=== PATIENT | female | born 1980 ===

== ENCOUNTER 2017-12-18 16:00 | Emergency (ER) | payer OTHER ==
[2017-12-18 16:00] VITALS: BMI 32.8
[2017-12-18 16:12] VITALS: RESP 16; O2SAT 100
--- NOTE | 2017-12-18 16:22 | ED PDOC ---
HPI: General Adult Time Seen by Provider: 12/18/17 16:22 Chief Complaint (Nursing): Chest Pain Chief Complaint (Provider): chest pain, abd pain, back pain History Per: Patient Additional Complaint(s): 37-year-old female with no past medical history presents to emergency department with epigastric pain, chest pain and back pain ongoing for about 3 weeks. Patient states pain starts in her epigastric region and radiates into her chest and her back. She has had nausea with no vomiting. Patient denies fever or chills. She also has had slight cough. No meds taken for pain relief. PMD: Blanca Mora Past Medical History Reviewed: Historical Data, Nursing Documentation, Vital Signs Vital Signs: Last Vital Signs Temp 98.4 F 12/18/17 16:11 Pulse 71 12/18/17 16:11 Resp 16 12/18/17 16:11 BP 145/78 12/18/17 16:11 Pulse Ox 100 12/18/17 18:50 - Medical History PMH: No Chronic Diseases - Surgical History Surgical History: (x 2) - Family History Family History: States: No Known Family Hx - Living Arrangements Living Arrangements: With Family - Social History Current smoker - smoking cessation education provided: No Alcohol: None Drugs: Denies - Home Medications Home Medications: Ambulatory Orders Medication Instructions Recorded oxyCODONE/Acetaminophen [Percocet 1 tab PO Q6H PRN #30 tab 10/19/15 5/325 mg Tab] Ondansetron [Zofran Odt] 4 mg PO ASDIR PRN #10 odt 12/18/17 - Allergies Allergies/Adverse Reactions: Allergies Allergy/AdvReac Type Severity Reaction Status Date / Time No Known Allergies Allergy Verified 10/16/15 06:25 Review of Systems ROS Statement: Except As Marked, All Systems Reviewed And Found Negative Constitutional: Negative for: Fever, Chills Cardiovascular: Positive for: Chest Pain Respiratory: Negative for: Cough Gastrointestinal: Positive for: Nausea, Abdominal Pain. Negative for: Vomiting , Diarrhea Genitourinary Female: Negative for: Dysuria Musculoskeletal: Positive for: Back Pain Physical Exam - Reviewed Nursing Documentation Reviewed: Yes Vital Signs Reviewed: Yes - Physical Exam Appears: Positive for: Well, Non-toxic, No Acute Distress Skin: Negative for: Rash Eye Exam: Positive for: Normal appearance Cardiovascular/Chest: Positive for: Regular Rate, Rhythm Respiratory: Positive for: Normal Breath Sounds Gastrointestinal/Abdominal: Positive for: Soft, Tenderness (epigastric, RUQ) Back: Negative for: L CVA Tenderness, R CVA Tenderness Extremity: Positive for: Normal ROM Neurologic/Psych: Positive for: Alert, Oriented - Laboratory Results Result Diagrams: 12/18/17 17:28 12/18/17 17:28 Urine POC: Negative Urine dip results: Positive for: Leukocyte Esterase (trace), Blood (moderate). Negative for: Nitrate, Ketones, Glucose, Bilirubin, Protein - ECG Interpretation Of ECG: Normal sinus rhythm 71 bpm, no acute finding, reviewed by PA and ED attending O2 Sat by Pulse Oximetry: 100 Pulse Ox Interpretation: Normal - Other Rad CXR X-Ray: Interpreted by Me, Viewed By Me X-Ray Interpretation: no acute finding ABD US X-Ray: Read By Radiologist X-Ray Interpretation: see below Medical Decision Making Medical Decision Makin37 year old with chest, back and abd pain Plan: EKG CXR Abd US US IVF IV pepcid PO maalox IV toradol US: FINDINGS: LIVER: Liver measures approximately 15 cm in CC dimension. Liver demonstrates smooth contour and normal echotexture. No obvious hepatic mass collection or calcification seen on images presented. No gross intrahepatic bile duct dilatation. GALLBLADDER: Multiple intraluminal gallbladder calculi. No sonographic Raygoza sign. COMMON BILE DUCT: Measures 7.0 mm. No stones. No dilatation. PANCREAS: Unremarkable as visualized. No mass. No ductal dilatation. RIGHT KIDNEY: Measures 10.4 x 4.6 x 4.9 cm in length. Normal echogenicity. No calculus, mass, or hydronephrosis. AORTA: No aneurysmal dilatation. IVC: Unremarkable. OTHER FINDINGS: None IMPRESSION: Cholelithiasis. No sonographic Raygoza sign. Patient feels much better after meds were given in ED. She is aware of all diagnostic test results, all questions answered. Patient given prescriptions for Motrin and Zofran. Patient was advised to follow up with clinic. Disposition - Clinical Impression Clinical Impression: Gallstones - Patient ED Disposition Is Patient to be Admitted: No Counseled Patient/Family Regarding: Studies Performed, Diagnosis, Need For Followup, Rx Given - Disposition Referrals: [facility] [Outside] [facility] [place] [Outside] Disposition: Routine/Home Disposition Time: 19:23 Condition: STABLE Additional Instructions: Take prescription meds as directed. Follow dietary instructions. Follow up with clinic in one to 2 days or return any time if acutely worse. Prescriptions: Ondansetron [Zofran Odt] 4 mg PO ASDIR PRN #10 odt PRN Reason: Nausea/Vomiting Instructions: Gallstones, Low Cholesterol, Saturated Fat, and Trans Fat Diet Forms: [employer] (Georgian) Print Language: ANDORRAN Results - Lab Results Lab Results: 12/18/17 12/18/17 12/18/17 18:47 17:28 17:28 WBC 10.8 RBC 4.45 Hgb 12.7 Hct 38.3 MCV 86.0 MCH 28.6 MCHC 33.3 RDW 13.0 Plt Count 207 MPV 8.2 Neut % (Auto) 71.2 Lymph % (Auto) 17.9 L Morrison % (Auto) 8.2 Eos % (Auto) 2.2 Baso % (Auto) 0.5 Neut # (Auto) 7.7 H Lymph # (Auto) 1.9 Morrison # (Auto) 0.9 H Eos # (Auto) 0.2 Baso # (Auto) 0.1 Sodium 143 Potassium 3.8 Chloride 104 Carbon Dioxide 26 Anion Gap 17 BUN 13 Creatinine 0.5 L Est GFR ( Amer) > 60 Est GFR (Non-Af Amer) > 60 Random Glucose 129 H Calcium 9.1 Total Bilirubin 0.5 AST 95 H ALT 67 H Alkaline Phosphatase 75 Troponin I < 0.0120 Total Protein 8.9 H Albumin 4.5 Globulin 4.4 H Albumin/Globulin Ratio 1.0 Urine Color Yellow Urine Clarity Turbid Urine pH 8.0 Ur Specific [place] 1.019 Urine Protein Negative Urine Glucose (UA) Neg Urine Ketones Negative Urine Blood Moderate Urine Nitrate Negative Urine Bilirubin Negative Urine Urobilinogen 0.2-1.0 Ur Leukocyte Esterase Neg Urine RBC (Auto) 87 H Ur Squamous Epith Cells 2 Amorphous Sediment Rare H Urine Bacteria Rare Urine Yeast (Budding) Many H
[2017-12-18] MEDS ORDERED: Alum-Mag Hydrox-Simethicone Susp (30 mL) PO STA (16:43)
[2017-12-18] MEDS ORDERED: Sodium Chloride 0.9% 1,000 ML IV STA (16:43)
[2017-12-18 17:33] LABS: BASO # 0.1 K/uL (0.0-0.2); BASO % 0.5 % (0.0-2.0); EOS # 0.2 K/uL (0.0-0.7); EOS % 2.2 % (0.0-4.0); HEMOGLOBIN 12.7 g/dL (12.0-16.0); LYMPH # 1.9 K/uL (1.0-4.3); LYMPH % 17.9 % (20.0-40.0); MEAN CORPUSCULAR HEMOGLOBIN 28.6 pg (27.0-31.0); MEAN CORPUSCULAR HGB CONC 33.3 g/dL (33.0-37.0); MEAN PLATELET VOLUME 8.2 fl (7.2-11.7); MONO # 0.9 K/uL (0.0-0.8); MONO % 8.2 % (0.0-10.0); NEUT # 7.7 K/uL (1.8-7.0); NEUT % 71.2 % (50.0-75.0); NRBC % 0.2 % (0.0-0.0); RBC 4.45 Mil/uL (3.80-5.20); WHITE BLOOD COUNT 10.8 K/uL (4.8-10.8)
[2017-12-18] MEDS ORDERED: Alum-Mag Hydrox-Simethicone Susp (30 mL) ONE (17:40)
[2017-12-18 17:47] LABS: ALBUMIN 4.5 g/dL (3.5-5.0); ALT/SGPT 67 U/L (9-52); AST/SGOT 95 U/L (14-36); BLOOD UREA NITROGEN 13 mg/dl (7-17); CALCIUM 9.1 mg/dL (8.4-10.2); GFR AFRICAN-AMERICAN > 60; GFR NON-AFRICAN AMERICAN > 60
--- NOTE | 2017-12-18 18:02 | US ---
HISTORY: Epigastric/right upper quadrant pain. COMPARISON: None. TECHNIQUE: Sonographic evaluation of the right upper quadrant of the abdomen. FINDINGS: LIVER: Liver measures approximately 15 cm in CC dimension. Liver demonstrates smooth contour and normal echotexture. No obvious hepatic mass collection or calcification seen on images presented. No gross intrahepatic bile duct dilatation. GALLBLADDER: Multiple intraluminal gallbladder calculi. No sonographic Raygoza sign. COMMON BILE DUCT: Measures 7.0 mm. No stones. No dilatation. PANCREAS: Unremarkable as visualized. No mass. No ductal dilatation. RIGHT KIDNEY: Measures 10.4 x 4.6 x 4.9 cm in length. Normal echogenicity. No calculus, mass, or hydronephrosis. AORTA: No aneurysmal dilatation. IVC: Unremarkable. OTHER FINDINGS: None . IMPRESSION: Cholelithiasis. No sonographic Raygoza sign.
[2017-12-18 19:04] LABS: SQUAMOUS EPITHIAL 2 /hpf (0-5); URINE AMORPHOUS SEDIMENT RARE /ul (<OCC); URINE BACTERIA RARE (<OCC); URINE BILIRUBIN NEGATIVE (NEGATIVE); URINE BLOOD MODERATE (NEGATIVE); URINE CLARITY TURBID (Clear); URINE COLOR YELLOW (YELLOW); URINE GLUCOSE (UA) NEG (Normal); URINE LEUKOCYTE ESTERASE NEG Leu/uL (Negative); URINE PROTEIN NEGATIVE (NEGATIVE); URINE UROBILINOGEN 0.2-1.0 mg/dL (0.2-1.0)
[2017-12-18 19:50] VITALS: BP 135/80; PULSE 73; TEMP 98.2
--- NOTE | 2017-12-19 08:17 | RAD ---
HISTORY: pain COMPARISON: No prior. FINDINGS: LUNGS: There is a vague rounded density left lateral lung base that probably represents nipple shadow artifact PLEURA: No significant pleural effusion identified, no pneumothorax apparent. CARDIOVASCULAR: Normal. OSSEOUS STRUCTURES: No significant abnormalities. VISUALIZED UPPER ABDOMEN: Normal. OTHER FINDINGS: None. IMPRESSION: Vague rounded density left lateral lung base probably represents nipple shadow artifact. Repeat PA and lateral views of the chest with nipple markers in place could be performed to confirm. Note that this report was placed in PA review folder for followup
== END 2017-12-18 19:30 | disposition home or self-care (01) ==
LOC: H.ER 16:00
DX: K80.20 Calculus of gallbladder without cholecystitis without obstruction (principal)
CPT/HCPCS: 71045; 76705; 80053; 81003; 81025; 84484; 85025; 87086; 99284; J1885; J7040

== ENCOUNTER 2018-03-28 20:20 | Emergency (ER) | payer OTHER ==
[2018-03-28 20:20] VITALS: BMI 32.8
[2018-03-28 20:32] VITALS: BP 150/83; PULSE 68; RESP 18; TEMP 98.1; O2SAT 99
[2018-03-28] MEDS ORDERED: Sodium Chloride 0.9% 1,000 ML IV STA (20:42)
[2018-03-28] MEDS ORDERED: Famotidine 20mg/50ml 20 MG/50 ML BAG IVPB ONE (21:16)
[2018-03-28 22:06] LABS: BASO % 0.4 % (0.0-2.0); EOS # 0.1 K/uL (0.0-0.7); EOS % 1.4 % (0.0-4.0); HEMOGLOBIN 12.2 g/dL (12.0-16.0); LYMPH # 2.1 K/uL (1.0-4.3); LYMPH % 21.7 % (20.0-40.0); MEAN CELL VOLUME 87.1 fl (81.0-99.0); MEAN CORPUSCULAR HEMOGLOBIN 28.8 pg (27.0-31.0); MEAN CORPUSCULAR HGB CONC 33.1 g/dL (33.0-37.0); MEAN PLATELET VOLUME 8.6 fl (7.2-11.7); MONO # 0.8 K/uL (0.0-0.8); MONO % 8.1 % (0.0-10.0); NEUT # 6.7 K/uL (1.8-7.0); NEUT % 68.4 % (50.0-75.0); RBC 4.24 Mil/uL (3.80-5.20); RED CELL DISTRIBUTION WIDTH 13.5 % (11.5-14.5); WHITE BLOOD COUNT 9.8 K/uL (4.8-10.8)
[2018-03-28 22:15] LABS: ALBUMIN 4.2 g/dL (3.5-5.0); ALT/SGPT 70 U/L (9-52); AST/SGOT 105 U/L (14-36); BLOOD UREA NITROGEN 17 mg/dl (7-17); CALCIUM 9.1 mg/dL (8.4-10.2); GFR AFRICAN-AMERICAN > 60; GFR NON-AFRICAN AMERICAN > 60; LIPASE 98 U/L (23-300)
--- NOTE | 2018-03-28 22:17 | ED PDOC ---
HPI: Abdomen Time Seen by Provider: 03/28/18 20:34 Chief Complaint (Nursing): Abdominal Pain Chief Complaint (Provider): Abdominal Pain History Per: Patient History/Exam Limitations: no limitations Onset/Duration Of Symptoms: Waxing/Waning, Gradual Location Of Pain/Discomfort: Epigastric Associated Symptoms: Nausea. denies: Fever, Vomiting, Urinary Symptoms Additional Complaint(s): 37 year old female, with a past medical history of gallstones diagnosed in November , presents complaining of gradual onset of epigastric pain that is constant and waxes and wanes in intensity. Pain is associated with nausea, is worse with eating, and radiates to the back. Denies fever, vomiting, urinary symptoms, CP , SOB, and diarrhea. Admits to abdominal surgery of . PCP: none provided Past Medical History Reviewed: Historical Data, Nursing Documentation, Vital Signs Vital Signs: Last Vital Signs Temp 98.1 F 03/28/18 20:29 Pulse 68 03/28/18 20:29 Resp 18 03/28/18 20:29 BP 150/83 03/28/18 20:29 Pulse Ox 99 03/28/18 23:33 - Medical History PMH: Gall Bladder Disease (Gallstones) - Surgical History Surgical History: (x 2) - Family History Family History: States: Unknown Family Hx - Home Medications Home Medications: Ambulatory Orders Medication Instructions Recorded oxyCODONE/Acetaminophen [Percocet 1 tab PO Q6H PRN #30 tab 10/19/15 5/325 mg Tab] Ibuprofen [Motrin] 600 mg PO Q6 PRN #15 tab 12/18/17 Ondansetron [Zofran Odt] 4 mg PO ASDIR PRN #10 odt 12/18/17 Famotidine [Pepcid] 40 mg PO DAILY #30 tablet 03/28/18 - Allergies Allergies/Adverse Reactions: Allergies Allergy/AdvReac Type Severity Reaction Status Date / Time No Known Allergies Allergy Verified 03/28/18 20:29 Review of Systems ROS Statement: Except As Marked, All Systems Reviewed And Found Negative Constitutional: Negative for: Fever Cardiovascular: Negative for: Chest Pain Respiratory: Negative for: Shortness of Breath Gastrointestinal: Positive for: Nausea, Abdominal Pain (epigastric pain radiates to the back). Negative for: Vomiting, Diarrhea Genitourinary Female: Negative for: Other (urinary symptoms) Physical Exam - Reviewed Nursing Documentation Reviewed: Yes Vital Signs Reviewed: Yes - Physical Exam Comments: GENERAL APPEARANCE: Patient is awake, alert, oriented x 3, in mild painful distress. SKIN: Warm, dry; (-) cyanosis. EYES: (-) conjunctival pallor, (-) scleral icterus. ENMT: Mucous membranes (+) moist. NECK: (-) tenderness, (-) stiffness, (-) lymphadenopathy. CHEST AND RESPIRATORY: (-) rales, (-) rhonchi, (-) wheezes; breath sounds equal bilaterally. HEART AND CARDIOVASCULAR: (-) irregularity; (-) murmur, (-) gallop. ABDOMEN AND GI: (-) distention. Bowel sounds active; (+) tenderness in epigastric and RUQ, (-) guarding, (-) rebound, (-) palpable masses, (-) CVA tenderness, (-) Raygoza's sign. EXTREMITIES: (-) deformity, (-) edema, (+) distal pulses. NEURO AND PSYCH: Mental status as above; (-) focal findings. - Laboratory Results Result Diagrams: 03/28/18 21:57 03/28/18 21:57 - ECG O2 Sat by Pulse Oximetry: 99 (RA) Pulse Ox Interpretation: Normal Medical Decision Making Medical Decision Making: Previous medical records reviewed, patient sen in November 2017 for abdominal pain , US of abd revealed +gallstones with mild elevation of LFTs. Initial Impression: consider dyspepsia and r/o cholecystitis Initial Plan: CMP Lipase ED urine ED urine dipstick CBC Sodium chloride 1000mL IV Pepcid 20mg IV Toradol 30mg IV Zofran 4mg IV US Abd US abd: FINDINGS: Liver: Unremarkable. No mass. No intrahepatic bile duct dilation. Gallbladder: Cholelithiasis. Cholelithiasis is noted extending into the gallbladder neck. No evidence of gallbladder wall thickening or pericholecystic fluid. As per the technologist note, sonographic Raygoza's sign is negative. Common bile duct: Measures 4.2 mm. Pancreas: Unremarkable as visualized. Right kidney: Unremarkable. No stones. No hydronephrosis. IMPRESSION: Cholelithiasis. Cholelithiasis is noted extending into the gallbladder neck. No evidence of gallbladder wall thickening or pericholecystic fluid. As per the technologist note, sonographic Raygoza's sign is negative. Dictated and Authenticated by: Kailee Rowell MD 03/28/2018 9:47 PM Eastern Time ([place] & [place]) On re-evaluation, patient reports improvement of symptoms, denies any nausea or abdominal pain at this time. On exam, patient remains AAOx3, in no acute distress. Abdomen soft, non-tender, (-) Raygoza's sign. Lab results reviewed : WBC wnl, LFTs mildly elevated with normal T bili. Labs today compared from labs done in November 2017, LFTs are stable and consistent. Diagnostic results d/w the patient in great detail. Diagnosis of billiary colic with possible dyspepsia d/w the patient. Based on history, exam and diagnostic results, plan will be for outpatient follow up. Advised to avoid fatty foods, change her diet, exercise and lose weight. Patient instructed to follow-up with the clinic in 1-2 days without fail. Advised to take medication as prescribed. Return to the emergency room at any time for any new or worsening symptoms. Patient states she fully agrees with and understands discharge instructions. States that she agrees with the plan and disposition. Verbalized and repeated discharge instructions and plan. I have given the patient opportunity to ask any additional questions. Scribe Attestation: Documented by Richard Reina acting as a scribe for Lovely SAM. Provider Scribe Attestation: All medical record entries made by the Scribe were at my direction and personally dictated by me. I have reviewed the chart and agree that the record accurately reflects my personal performance of the history, physical exam, medical decision making, and the department course for this patient. I have also personally directed, reviewed, and agree with the discharge instructions and disposition. Disposition - Clinical Impression Clinical Impression: Biliary colic - Patient ED Disposition Is Patient to be Admitted: No Counseled Patient/Family Regarding: Studies Performed, Diagnosis, Need For Followup - Disposition Referrals: [facility] [place] [Outside] Disposition: Routine/Home Disposition Time: 23:00 Condition: IMPROVED Additional Instructions: Gurdeep por dejarnos atenderlo hoy. Usted fue tratado por clculos biliares. La atencin mdica de emergencia que recibi hoy estaba dirigida a kareen sntomas agudos. Regrese al Departamento de Emergencia si kareen sntomas empeoran, no mejoran o si tiene algn otro problema. Llame a janae de los mdicos / clnicas a los que lyman recomendado que se detallan en el formulario de Informacin de visita del paciente que se incluye en rich paquete de priti. Traiga todos los documentos que recibi al momento del priti junto con los medicamentos que est tomando en rich visita de seguimiento. Nuestro tratamiento no puede reemplazar la atencin mdica en curso por parte de un proveedor de atencin primaria (PCP) fuera del departamento de emergencias. Gurdeep por permitir que el equipo de [facility] [employer] sea parte de rich cuidado hoy. Prescriptions: Famotidine [Pepcid] 40 mg PO DAILY #30 tablet Instructions: Gallstones Forms: [employer] (Lao), [facility] School/Work Excuse Print Language: PUERTO RICAN
--- NOTE | 2018-03-29 10:49 | US ---
HISTORY: RUQ pain, h/o stones COMPARISON: 12/18/2017 abdominal ultrasound. Summary of findings on the comparison examination: Cholelithiasis. No sonographic Raygoza's sign TECHNIQUE: Sonographic evaluation of the right upper quadrant of the abdomen. FINDINGS: LIVER: Measures 14.8 cm in length. Patent portal vein. Portal venous flow: Hepatopetal. Unremarkable echogenicity of the liver parenchyma. No mass. No intrahepatic bile duct dilatation. GALLBLADDER: Cholelithiasis. Negative study for gallbladder wall thickening, pericholecystic fluid, sonographic Raygoza's sign. COMMON BILE DUCT: Measures 4.3 mm. No stones. No dilatation. PANCREAS: Unremarkable as visualized. No mass. No ductal dilatation. RIGHT KIDNEY: Measures 5.2 x 10.8 cm in length. Normal echogenicity. No calculus, mass, or hydronephrosis. AORTA: No aneurysmal dilatation. IVC: Unremarkable. OTHER FINDINGS: None . IMPRESSION: Cholelithiasis. No sonographic evidence of acute cholecystitis. No significant interval change compared to the prior examination(s). Concordant results (preliminary interpretation) provided by [employer]. Procedure Completed: 21:16 Preliminary ([employer]) Report: Dictated and Authenticated: 21:47 Final Interpretation: 10:47 March 29, 2018.
== END 2018-03-29 00:01 | disposition home or self-care (01) ==
LOC: H.ER 20:20
DX: K80.70 Calculus of gallbladder and bile duct without cholecystitis without obstruction (principal)
CPT/HCPCS: 76705; 80053; 81025; 83690; 85025; 96361; 96374; 96375; 99283; J1885; J2405; J7030